=== PATIENT | female | born 1995 | race Caucasian/White ===

== ENCOUNTER 2017-01-25 14:14 | Emergency (ER) | payer MEDICAID ==
[~2017-01-25] VITALS: Ht 160 cm; Wt 109.0 kg
[~2017-01-25 14:14] MED LIST: PREN-55 PO
[2017-01-25 14:24] VITALS: BP 142/68
== END 2017-01-25 15:10 | disposition home or self-care (01) ==
LOC: ER 14:15
DX: S39.012A Strain of muscle, fascia and tendon of lower back, initial encounter (principal); H61.21 Impacted cerumen, right ear; I10 Essential (primary) hypertension; V89.2XXA Person injured in unspecified motor-vehicle accident, traffic, initial encounter; Y93.89 Activity, other specified; Y99.8 Other external cause status; Y92.89 Other specified places as the place of occurrence of the external cause
CPT/HCPCS: 99283

== ENCOUNTER 2018-01-22 21:55 | Emergency (ER) | payer MEDICAID, OTHER ==
[~2018-01-22] VITALS: Ht 157.5 cm; Wt 110.0 kg
[2018-01-22] MEDS ORDERED: KETOROLAC 30MG/ML VIAL IM ONE (23:30)
[2018-01-22] MEDS ORDERED: CYCLOBENZAPRINE 10MG TABLET PO ONE (23:30)
[2018-01-23] MEDS ORDERED: IBUPROFEN 800MG TABLET PO ONE
[2018-01-23 00:54] VITALS: BP 128/78
== END 2018-01-23 00:54 | disposition home or self-care (01) ==
LOC: ER 22:06
DX: M54.5 Low back pain (principal)
CPT/HCPCS: 99283

== ENCOUNTER 2018-08-20 13:16 | Emergency (ER) | payer MEDICAID ==
[~2018-08-20] VITALS: Ht 165.1 cm; Wt 131.0 kg
[2018-08-20 14:01] VITALS: BP 131/64
== END 2018-08-20 17:46 | disposition home or self-care (01) ==
LOC: ER 13:16
DX: J06.9 Acute upper respiratory infection, unspecified (principal); Z79.899 Other long term (current) drug therapy
CPT/HCPCS: 99283

== ENCOUNTER 2019-07-23 16:28 | Emergency (ER) | payer MEDICAID ==
[~2019-07-23] VITALS: Ht 157.5 cm; Wt 124.0 kg
[2019-07-23 17:31] VITALS: BP 140/90
== END 2019-07-23 19:30 | disposition left against medical advice (07) ==
LOC: ER 16:28
DX: R42 Dizziness and giddiness (principal); Z53.21 Procedure and treatment not carried out due to patient leaving prior to being seen by health care provider

== ENCOUNTER 2019-11-09 11:18 | Emergency (ER) | payer MEDICAID ==
[~2019-11-09] VITALS: Ht 157.5 cm; Wt 122.5 kg
[2019-11-09 12:18] VITALS: BP 131/84
== END 2019-11-09 12:55 | disposition home or self-care (01) ==
LOC: ER 11:18 → EEVIPCON 11:18 → ER 12:55
DX: B34.9 Viral infection, unspecified (principal)
CPT/HCPCS: 99281; 99282

== ENCOUNTER 2020-06-17 01:38 | Emergency (ER) | payer MEDICAID, OTHER ==
[~2020-06-17] VITALS: Ht 157.5 cm; Wt 120.0 kg
[2020-06-17] MEDS ORDERED: HYDROCODONE/ACETAMINOPHEN 5/325MG TABLET PO ONE ×2 (02:00→09:00)
[2020-06-17] MEDS ORDERED: MORPHINE SULFATE 10 MG/ML CPJ IM NR (04:00)
[2020-06-17] MEDS ORDERED: BUPIVACAINE HCL/PF 0.25% (2.5MG/ML) 10ML INFIL ONE (06:30)
[2020-06-17] MEDS ORDERED: KETAMINE HCL 50 MG/ML 10ML IV ONE (07:00)
[2020-06-17] MEDS ORDERED: PROPOFOL 200MG/20ML VIAL IV ONE (07:00)
[2020-06-17 09:09] VITALS: BP 133/67
== END 2020-06-17 09:12 | disposition home or self-care (01) ==
LOC: ER 01:38
DX: S42.301A Unspecified fracture of shaft of humerus, right arm, initial encounter for closed fracture (principal); W18.30XA Fall on same level, unspecified, initial encounter; Y93.89 Activity, other specified; Y92.89 Other specified places as the place of occurrence of the external cause; Y99.8 Other external cause status
CPT/HCPCS: 29105; 73060; 73090; 73110; 73200; 96372; 99284; J2270; J3490

== ENCOUNTER 2020-06-21 16:12 | Emergency (ER) | payer MEDICAID ==
[~2020-06-21] VITALS: Ht 157.5 cm; Wt 118.0 kg
[2020-06-21] MEDS ORDERED: HYDROCODONE/ACETAMINOPHEN 5/325MG TABLET PO ONE (16:45)
[2020-06-21] MEDS ORDERED: BUPIVACAINE HCL/PF 0.5% (5MG/ML) 10ML INFIL NR (17:45)
[2020-06-21 20:32] VITALS: BP 145/89
== END 2020-06-21 20:34 | disposition home or self-care (01) ==
LOC: ER 16:21
DX: Z48.00 Encounter for change or removal of nonsurgical wound dressing (principal)
CPT/HCPCS: 29105; 73060; 99283; J3490

== ENCOUNTER 2021-05-04 00:30 | Inpatient (IN) | payer MEDICAID ==
[~2021-05-04] VITALS: Ht 157.5 cm; Wt 122.5 kg
[2021-05-04] MEDS ORDERED: ONDANSETRON 4MG ODT PO STA (01:14)
[2021-05-04] MEDS ORDERED: MAGNESIUM/ALUMINUM HYDROXIDE/SIMETHICONE 30ML UDC PO STA (01:14)
[2021-05-04 01:46] LABS: BASOPHILS % 0.3 % (0.0-2.0); EOSINOPHILS % 0.6 % (0.0-5.0); HEMATOCRIT. 36.9 % (36.0-48.0); HEMOGLOBIN. 12.5 g/dL (12.0-16.0); LYMPHOCYTES % 15.9 % (20.0-50.0); MEAN CORPUSCULAR HEMOGLOBIN 30.2 pg (28.0-32.0); MEAN CORPUSCULAR VOLUME 88.7 fL (81.0-99.0); MONOCYTES % 4.3 % (2.0-8.0); NEUTROPHILS % 78.9 % (40.0-76.0); PLATELET 201 x1000/uL (130-400); RED BLOOD CELL COUNT 4.16 mill/uL (4.2-5.4)
[2021-05-04 01:51] LABS: CHLORIDE 105 mEq/L (98-107)
[2021-05-04 01:54] LABS: PROTHROMBIN TIME 10.3 sec (9.6-11.0)
[2021-05-04 02:26] LABS: HCG SCREEN NEGATIVE
[2021-05-04] MEDS ORDERED: KETOROLAC 30MG/ML VIAL IV ONE (02:30)
[2021-05-04] MEDS ORDERED: MORPHINE SULFATE 4 MG/ML CPJ (NOT FOR IM USE) IV ONE (02:45)
[2021-05-04] MEDS ORDERED: PIPERACILLIN/TAZOBACTAM 3.375GM/50ML PREMIX IV ONE (03:30)
[2021-05-04] MEDS ORDERED: PIPERACILLIN/TAZ 3.375G PREMIX 50 ML IV NR (04:00)
[2021-05-04 08:28] VITALS: BP 137/81
[2021-05-04] MEDS ORDERED: ONDANSETRON HCL 4MG/2ML INJ IV PRN (09:15)
[2021-05-04 09:30] VITALS: BP 137/81
[2021-05-04] MEDS ORDERED: NALOXONE HCL 0.4MG/ML VIAL IV PRN (09:30)
[2021-05-04] MEDS: HYDROCODONE/ACETAMINOPHEN 5/325MG TABLET PO PRN ×2 (11:30→19:14)
[2021-05-04 12:00] VITALS: BP 129/75
[2021-05-04] MEDS: PIPERACILLIN/TAZOBACTAM 3.375 G in DEXTROSE 5% WATER 50 ML IV SCH ×2 (15:51→22:31)
[2021-05-04 16:00] VITALS: BP 117/76
[2021-05-04 20:00] VITALS: BP 123/64
[2021-05-04] MEDS: HYDROCODONE/ACETAMINOPHEN 10/325MG TABLET PO PRN (20:57)
[2021-05-05] VITALS: BP 110/64
[2021-05-05 04:00] VITALS: BP 117/44
[2021-05-05] MEDS: PIPERACILLIN/TAZOBACTAM 3.375 G in DEXTROSE 5% WATER 50 ML IV SCH ×3 (05:15→21:48)
[2021-05-05 08:00] VITALS: BP 118/50
[2021-05-05] MEDS: HYDROCODONE/ACETAMINOPHEN 10/325MG TABLET PO PRN ×2 (09:29→16:27)
[2021-05-05] MEDS: HYDROCODONE/ACETAMINOPHEN 5/325MG TABLET PO PRN ×2 (11:42→18:48)
[2021-05-05 12:00] VITALS: BP 120/62
[2021-05-05] MEDS ORDERED: HYDR-4009 PO (13:37)
[2021-05-05 16:00] VITALS: BP 122/64
[2021-05-05 19:31] LABS: HEMATOCRIT 37.3 % (36.0-48.0); HEMOGLOBIN 13.2 g/dL (12.0-16.0); MEAN CORPUSCULAR HEMOGLOBIN 31.4 pg (28.0-32.0); MEAN CORPUSCULAR VOLUME 88.8 fL (81.0-99.0); PLATELET 201 x1000/uL (130-400); RED BLOOD CELL COUNT 4.19 mill/uL (4.2-5.4); RED CELL DISTRIBUTION WIDTH 14.4 % (11.6-14.6)
[2021-05-05 19:44] LABS: CHLORIDE 104 mEq/L (98-107)
[2021-05-05] MEDS: MORPHINE SULFATE 2 MG/ML CPJ (NOT FOR IM USE) IV PRN (21:50)
[2021-05-06] MEDS: PIPERACILLIN/TAZOBACTAM 3.375 G in DEXTROSE 5% WATER 50 ML IV SCH ×2 (05:53→14:00)
[2021-05-06 08:00] VITALS: BP 100/50
[2021-05-06 12:00] VITALS: BP 117/70
[2021-05-06] MEDS: MORPHINE SULFATE 2 MG/ML CPJ (NOT FOR IM USE) IV PRN (12:22)
[2021-05-06 14:03] VITALS: BP 117/70
[2021-05-06 15:09] VITALS: BP 117/70
[2021-05-06] MEDS: HYDROCODONE/ACETAMINOPHEN 10/325MG TABLET PO PRN (15:09)
== END 2021-05-06 15:15 | disposition home or self-care (01) ==
LOC: ER 00:30 → MICUSO 05:15 → 6EST 06:49
PROVIDERS: ADMIT Internal Medicine; ATTEND Internal Medicine
DX: K81.9 Cholecystitis, unspecified (principal); E66.01 Morbid (severe) obesity due to excess calories; Z71.3 Dietary counseling and surveillance; Z68.42 Body mass index [BMI] 45.0-49.9, adult
CPT/HCPCS: 36415; 71045; 76705; 80053; 84703; 85025; 85027; 93005; 99285; J1885; J2270; J2543; J7060; Q0162

== ENCOUNTER 2022-05-30 06:36 | Emergency (ER) | payer MEDICAID ==
[~2022-05-30] VITALS: Ht 167.6 cm; Wt 100.0 kg
[2022-05-30 07:00] LABS: CHLORIDE 103 mEq/L (98-107)
[2022-05-30 07:14] LABS: BASOPHILS % 0.4 % (0.0-2.0); EOSINOPHILS % 0.9 % (0.0-5.0); ETHANOL BLOOD < 10 mg/dL; HEMATOCRIT. 41.7 % (36.0-48.0); LYMPHOCYTES % 26.3 % (20.0-50.0); MEAN CORPUSCULAR HEMOGLOBIN 29.9 pg (28.0-32.0); MEAN CORPUSCULAR VOLUME 88.7 fL (81.0-99.0); MEAN PLATELET VOLUME 10.2 fl (7.4-10.4); MONOCYTES % 6.9 % (2.0-8.0); NEUTROPHILS % 65.5 % (40.0-76.0); PLATELET 236 x1000/uL (130-400); RED CELL DISTRIBUTION WIDTH 13.8 % (11.6-14.6)
[2022-05-30] MEDS ORDERED: ACETAMINOPHEN 325MG TABLET PO ONE (07:15)
[2022-05-30 08:44] VITALS: BP 139/88
== END 2022-05-30 09:12 | disposition home or self-care (01) ==
LOC: ER 06:36
DX: F15.10 Other stimulant abuse, uncomplicated (principal); R51.9 Headache, unspecified
CPT/HCPCS: 36415; 80053; 80320; 85025; 99284; G0480

== ENCOUNTER 2022-12-29 17:14 | Emergency (ER) | payer MEDICAID ==
[~2022-12-29] VITALS: Ht 157.5 cm; Wt 95.0 kg
[2022-12-29 17:20] VITALS: BP 121/74
[2022-12-29 17:57] LABS: CHLORIDE 106 mEq/L (98-107)
[2022-12-29 17:58] LABS: BASOPHILS % 0.3 % (0.0-2.0); EOSINOPHILS % 1.8 % (0.0-5.0); HEMOGLOBIN. 11.7 g/dL (12.0-16.0); LYMPHOCYTES % 24.6 % (20.0-50.0); MEAN CORPUSCULAR HEMOGLOBIN 30.9 pg (28.0-32.0); MEAN CORPUSCULAR VOLUME 87.4 fL (81.0-99.0); MEAN PLATELET VOLUME 10.8 fl (7.4-10.4); MONOCYTES % 5.8 % (2.0-8.0); NEUTROPHILS % 67.5 % (40.0-76.0); PLATELET 220 x1000/uL (130-400); RED BLOOD CELL COUNT 3.78 mill/uL (4.2-5.4); RED CELL DISTRIBUTION WIDTH 13.2 % (11.6-14.6)
[2022-12-29 18:16] LABS: HCG SCREEN POSITIVE
== END 2022-12-29 18:58 | disposition left against medical advice (07) ==
LOC: ER 17:14
DX: Z53.21 Procedure and treatment not carried out due to patient leaving prior to being seen by health care provider (principal)
CPT/HCPCS: 36415; 80053; 82962; 84703; 85025; 86850; 86900; 93005; 99281

== ENCOUNTER 2023-01-14 12:01 | Emergency (ER) | payer MEDICAID ==
[~2023-01-14] VITALS: Ht 160 cm; Wt 94.5 kg
[2023-01-14 12:09] VITALS: BP 118/68
[2023-01-14 12:25] LABS: BASOPHILS % 0.2 % (0.0-2.0); EOSINOPHILS % 1.2 % (0.0-5.0); HEMATOCRIT. 31.1 % (36.0-48.0); HEMOGLOBIN. 11.2 g/dL (12.0-16.0); LYMPHOCYTES % 20.9 % (20.0-50.0); MEAN CORPUSCULAR HEMOGLOBIN 31.4 pg (28.0-32.0); MEAN CORPUSCULAR VOLUME 87.4 fL (81.0-99.0); MEAN PLATELET VOLUME 10.6 fl (7.4-10.4); MONOCYTES % 5.7 % (2.0-8.0); PLATELET 197 x1000/uL (130-400); RED BLOOD CELL COUNT 3.56 mill/uL (4.2-5.4); RED CELL DISTRIBUTION WIDTH 13.1 % (11.6-14.6)
[2023-01-14 12:33] LABS: CHLORIDE 108 mEq/L (98-107)
== END 2023-01-14 22:34 | disposition left against medical advice (07) ==
LOC: ER 12:01
DX: Z00.00 Encounter for general adult medical examination without abnormal findings (principal); Z53.21 Procedure and treatment not carried out due to patient leaving prior to being seen by health care provider
CPT/HCPCS: 36415; 71045; 80053; 85025; 99281; 99284

== ENCOUNTER 2023-01-19 18:16 | Emergency (ER) | payer MEDICAID ==
[~2023-01-19] VITALS: Ht 160 cm; Wt 96.0 kg
[2023-01-19 18:26] VITALS: BP 129/83
[2023-01-19] MEDS ORDERED: ACETAMINOPHEN 325MG TABLET PO PRN (20:45)
[2023-01-19 21:21] LABS: CHLORIDE 106 mEq/L (98-107)
[2023-01-19 21:26] LABS: BASOPHILS % 0.2 % (0.0-2.0); EOSINOPHILS % 1.3 % (0.0-5.0); HEMATOCRIT. 32.1 % (36.0-48.0); HEMOGLOBIN. 11.3 g/dL (12.0-16.0); LYMPHOCYTES % 22.7 % (20.0-50.0); MEAN CORPUSCULAR HEMOGLOBIN 30.9 pg (28.0-32.0); MEAN CORPUSCULAR VOLUME 87.9 fL (81.0-99.0); MEAN PLATELET VOLUME 10.8 fl (7.4-10.4); MONOCYTES % 6.3 % (2.0-8.0); NEUTROPHILS % 69.5 % (40.0-76.0); PLATELET 218 x1000/uL (130-400); RED BLOOD CELL COUNT 3.65 mill/uL (4.2-5.4); RED CELL DISTRIBUTION WIDTH 13.6 % (11.6-14.6)
[2023-01-19 21:45] LABS: B-HCG QUANTITATIVE 25201 mIU/mL (<3)
[2023-01-19 22:45] LABS: CLARITY URINE CLEAR (CLEAR); COLOR URINE YELLOW (YELLOW); KETONES URINE TRACE (NEGATIVE); LEUKOCYTE ESTERASE URINE TRACE (NEGATIVE); NITRITE URINE NEGATIVE (NEGATIVE); OCCULT BLOOD URINE NEGATIVE (NEGATIVE); PROTEIN URINE NEGATIVE (NEGATIVE); SPECIFIC GRAVITY URINE 1.029 (1.005-1.030)
[2023-01-19 22:56] LABS: *AMPHETAMINES SCREEN URINE NEGATIVE (NEGATIVE); *BARBITURATES SCREEN URINE NEGATIVE (NEGATIVE); *BENZODIAZEPINES SCREEN URINE NEGATIVE (NEGATIVE); *COCAINE SCREEN URINE NEGATIVE (NEGATIVE); CANNABINOID URINE SCREEN NEGATIVE (NEGATIVE); METHADONE URINE SCREEN NEGATIVE (NEGATIVE); OPIATES URINE SCREEN NEGATIVE (NEGATIVE); PHENCYCLIDINE URINE SCREEN NEGATIVE (NEGATIVE)
== END 2023-01-19 23:42 | disposition home or self-care (01) ==
LOC: ER 18:16
DX: O23.11 Infections of bladder in pregnancy, first trimester (principal); O26.891 Other specified pregnancy related conditions, first trimester; N30.00 Acute cystitis without hematuria; M79.10 Myalgia, unspecified site; F19.90 Other psychoactive substance use, unspecified, uncomplicated; Z3A.11 11 weeks gestation of pregnancy
CPT/HCPCS: 36415; 76801; 80053; 80305; 81003; 84702; 85025; 99284